=== PATIENT | male | born 1950 ===

== ENCOUNTER 2021-11-09 06:27 | Day surgery (SDC) | payer MEDICARE, OTHER ==
[2021-11-07 13:17] LABS: Absolute Lymphocytes (CBC) 2.1 K/uL (0.7-4.9); Hematocrit 39.2 % (39.6-49.0); Lymphocytes % 26.6 % (15.3-44.8); MCV 94.7 fL (80-100); MPV 9.1 fL (7.6-11.3); RBC Red Blood Cell Count 4.14 M/uL (4.33-5.43)
[2021-11-07 13:28] LABS: SARS-CoV-2 Antigen Rapid Res Negative (Negative)
[2021-11-07 13:30] LABS: Potassium 4.3 mmol/L (3.5-5.1)
--- NOTE | 2021-11-07 13:43 | RAD REPORT ---
EXAM DESCRIPTION: Merna Abreu (2 Views)11/07/2021 1:30 pm CLINICAL HISTORY: Preop for back mass surgery COMPARISON: 2019 FINDINGS: Lungs are mildly to moderately hyperaerated. The lungs appear clear of acute infiltrate. The heart is normal size Neurostimulator device in place IMPRESSION: No acute abnormalities displayed
--- NOTE | 2021-11-08 12:18 | EKG ---
Test Date: 2021-11-07 Test Time: 12:55:24 Aircraft Engine Assembler: SHANE MEASUREMENT RESULTS: Intervals: Rate: 64 OH: 178 QRSD: 98 QT: 406 QTc: 418 [place]: P: 67 OH: 178 QRS: -35 T: 63 INTERPRETIVE STATEMENTS: Normal sinus rhythm Left axis deviation Abnormal ECG Compared to ECG 03/12/2016 15:06:29 Left-axis deviation now present Electronically Signed On 11-08-21 12:17:11 CDT by Luis Rodriguez
[2021-11-09] MEDS ORDERED: CEFAZOLIN SODIUM 1 GM/VIAL ONE (06:54)
[2021-11-09] MEDS ORDERED: Ringers Lactate 1,000 ML IV ONE (06:54)
[2021-11-09] MEDS ORDERED: CELECOXIB 100 MG CAPSULE ONE (07:05)
[2021-11-09] MEDS ORDERED: ACETAMINOPHEN 500 MG TAB ONE (07:06)
[2021-11-09] MEDS ORDERED: propofoL 200 MG/20 ML VIAL IV ONE (07:12)
[2021-11-09] MEDS ORDERED: FENTANYL CITR 100 MCG/2 ML ONE (07:12)
[2021-11-09] MEDS ORDERED: LIDOCAINE 1% MPF 5 ML VIAL ONE ×2 (07:13)
[2021-11-09] MEDS ORDERED: dexAMETHasone 10 MG/ML VIAL ONE (07:53)
[2021-11-09] MEDS ORDERED: KETOROLAC 30 MG/ML INJ ONE (07:54)
[2021-11-09] MEDS ORDERED: ONDANSETRON 4 MG/2 ML VIAL ONE (07:56)
[2021-11-09] MEDS ORDERED: NS 0.9% VIAL 10 ML ONE (08:01)
[2021-11-09] MEDS ORDERED: EPHEDRINE SULF 50 MG/ML VIAL ONE (08:01)
[2021-11-09] MEDS ORDERED: HYDROCODONE/APAP 7.5/325 MG TAB PO PRN (08:23)
--- NOTE | 2021-11-09 08:33 | P.OP ---
Date of Service: 11/09/21 Preop diagnosis: Back mass Postop diagnosis: Same Procedure performed: Wide excision back mass 4 x 2 cm with layered closure Surgeon: Jonathan Hung MD Private Advisor: Pratik SHORE Estimated blood loss: Minimal Specimen: Back mass Findings: Sebaceous cyst Anesthesia: General Complications: None Drains: None Fluids and blood products: Nonapplicable Disposition: Recovery room Operative note: Patient brought to the OR and placed in the supine position. General anesthesia begun. Patient placed in the left lateral position. Patient prepped and draped in the usual sterile fashion. Marcaine 0.5% infiltrated locally for postop pain control. 15 blade used to make a 4 x 2 cm ellipse of skin on the back surrounding the opening of the cyst. Subcutaneous tissue divided and entire cyst excised and sent to pathology as specimen. Wound irrigated and bleeding controlled cautery. 2-0 chromic used to approximate subcutaneous tissue and 4-0 nylon used to close skin. Sterile dressing applied. Patient awakened and taken to the recovery room in good general condition. CC: Dr. Prince's office
[2021-11-09 08:50] VITALS: O2SAT 96
[2021-11-09 10:39] VITALS: BP 118/76
[2021-11-09 10:41] VITALS: TEMP 97
== END 2021-11-09 09:50 | disposition home or self-care (01) ==
LOC: OR 06:27
PROVIDERS: ATTEND Surgery
PROC: 0JB70ZZ Excision of Back Subcutaneous Tissue and Fascia, Open Approach (ICD-10-PCS; principal; 2021-11-09 07:30)
DX: L72.0 Epidermal cyst (principal); Z20.822 Contact with and (suspected) exposure to COVID-19
CPT/HCPCS: 93005; 85025; 80048; 36415; 88304; 71046; 87811; 11404; J2704; J3010; J1100; J7120; J2405; J0690; 88305